=== PATIENT | male | born 1985 | race American Indian/Alaskan Native ===

== ENCOUNTER 2017-08-07 08:28 | Outpatient (CLI) | payer BC ==
--- NOTE | 2017-08-07 14:19 | Nuclear Medicine Report ---
NUCLEAR MEDICINE GASTRIC EMPTYING SCAN History: Nausea and vomiting Findings: Anterior abdominal images were obtained for 90 minutes following the ingestion of 1 mCi of technetium 99m sulfur colloid in oatmeal. Half life for gastric emptying measures 422 minutes. There is 8% gastric emptying after 90 minutes. No scintigraphic evidence for reflux disease. Impression: Severe gastroparesis.
== END 2017-08-07 08:29 | disposition home or self-care (01) ==
LOC: NM 08:28
PROVIDERS: ATTEND Internal Medicine Gastroenterology
DX: K31.84 Gastroparesis (principal)
CPT/HCPCS: 78264; A9541